=== PATIENT | male | born 1980 | race Caucasian/White ===

== ENCOUNTER 2018-05-01 00:14 | Emergency (ER) | payer OTHER ==
[~2018-05-01] VITALS: Ht 193 cm; Wt 105.3 kg
[2018-05-01 00:20] VITALS: RESP 19; Ht 193 cm; Wt 105.3 kg
--- NOTE | 2018-05-01 03:30 | ERD ---
ER Documentation Chief Complaint Chief Complaint RUQ ABD PAIN X 4HOURS,DENIES N/V/D. PT IS ANXIOUS HPI Patient is a 37-year-old HIV positive male with past medical history of meth abuse who presents to the ED with complaints of right upper quadrant pain for the past 4 hours. Patient states pain is intermittent, waxing and waning and localized to his right upper quadrant and radiates towards his epigastrium. States pain is currently 6 out of 10 intensity. Patient states he did have similar pain "once before. He does report some nausea but denies any vomiting or diarrhea. Denies any fevers, chills, constipation, bloating, dysuria, frequency, urgency, oliguria, anuria. Patient states he has been clean from any meth use for 6 months but relapsed yesterday. He is noted to have elevated blood pressure in clinic however denies any chest pain or shortness of breath. She also admits to chronic alcohol use, states he drinks "more than normal people do." Last drink a small bottle of vodka this morning. ROS All systems reviewed and are negative except as per history of present illness. Allergies Allergies: Coded Allergies: No Known Allergy (Unverified , 05/01/18) PMhx/Soc Medical and Surgical Hx: pt denies Surgical Hx Hx Miscellaneous Medical Probl: Yes (HIV (+)) Hx Alcohol Use: Yes Hx Substance Use: Yes ( HEROINE) Hx Tobacco Use: Yes Smoking Status: Current every day smoker FmHx Family History: No diabetes Physical Exam Vitals Vital Signs Date Temp Pulse Resp B/P (MAP) Pulse Ox O2 O2 Flow FiO2 Time Delivery Rate 05/01/18 97.8 76 19 172/79 100 00:20 (110) Physical Exam Const: + Appears anxious. Awake, alert and oriented x3 Head: Atraumatic Eyes: Normal Conjunctiva ENT: Normal External Ears, Nose and Mouth. Neck: Full range of motion. No meningismus. Resp: Clear to auscultation bilaterally Cardio: Regular rate and rhythm, no murmurs Abd: Soft, + mild tenderness to the epigastrium and right upper quadrant. Negative Connolly sign. Negative McBurney sign, non distended. Normal bowel sounds Skin: No petechiae or rashes Back: No midline or flank tenderness Ext: No cyanosis, or edema Neur: Awake and alert Psych: + Appears anxious Result Diagram: 05/01/1820905/01/18 0210 Results 24 hrs Laboratory Tests Test 05/01/18 02:10 White Blood Count 10.5 10^3/ul Red Blood Count 5.16 10^6/ul Hemoglobin 15.0 g/dl Hematocrit 43.7 % Mean Corpuscular Volume 84.7 fl Mean Corpuscular Hemoglobin 29.1 pg Mean Corpuscular Hemoglobin Concent 34.3 g/dl Red Cell Distribution Width 12.2 % Platelet Count 367 10^3/UL Mean Platelet Volume 9.2 fl Immature Granulocytes % 0.500 % Neutrophils % 66.6 % Lymphocytes % 23.9 % Monocytes % 8.2 % Eosinophils % 0.3 % Basophils % 0.5 % Nucleated Red Blood Cells % 0.0 /100WBC Immature Granulocytes # 0.050 10^3/ul Neutrophils # 7.0 10^3/ul Lymphocytes # 2.5 10^3/ul Monocytes # 0.9 10^3/ul Eosinophils # 0.0 10^3/ul Basophils # 0.1 10^3/ul Nucleated Red Blood Cells # 0.0 10^3/ul Prothrombin Time 12.9 Sec Prothrombin Time Ratio 1.0 INR International Normalized Ratio 0.96 Activated Partial Thromboplast Time 25.8 Sec Urine Color YELLOW Urine Clarity SLIGHTLY CLOUDY Urine pH 5.0 Urine Specific [place] 1.023 Urine Ketones 1+ mg/dL Urine Nitrite NEGATIVE mg/dL Urine Bilirubin NEGATIVE mg/dL Urine Urobilinogen NEGATIVE mg/dL Urine Leukocyte Esterase NEGATIVE [place]/ul Urine Microscopic RBC 1 /HPF Urine Microscopic WBC 6 /HPF Urine Bacteria FEW /HPF Urine Mucus FEW /HPF Urine Hemoglobin NEGATIVE mg/dL Urine Glucose NEGATIVE mg/dL Urine Total Protein NEGATIVE mg/dl Sodium Level 136 mmol/L Potassium Level 4.2 mmol/L Chloride Level 96 mmol/L Carbon Dioxide Level 26 mmol/L Anion Gap 14 Blood Urea Nitrogen 20 mg/dl Creatinine 1.44 mg/dl Est Glomerular Filtrat Rate mL/min 55 mL/min Glucose Level 79 mg/dl Calcium Level 9.9 mg/dl Total Bilirubin 0.9 mg/dl Direct Bilirubin 0.00 mg/dl Indirect Bilirubin 0.9 mg/dl Aspartate Amino Transf (AST/SGOT) 34 IU/L Alanine Aminotransferase (ALT/SGPT) 28 IU/L Alkaline Phosphatase 66 IU/L Troponin I < 0.012 ng/ml Total Protein 8.1 g/dl Albumin 4.9 g/dl Globulin 3.20 g/dl Albumin/Globulin Ratio 1.53 Lipase 93 U/L Urine Opiates Screen Negative Urine Barbiturates Negative Urine Amphetamines Screen POSITIVE Urine Benzodiazepines Screen Negative Urine Cocaine Screen Negative Urine Cannabinoids Negative Procedures/MDM EMERGENT LABS AND DIAGNOSTIC STUDIES: Lab Results above were reviewed and interpreted by me as below. CBC: no e/o of systemic infection or severe anemia CMP: Cr 1.44 No e/o severe acidosis, alkalosis, diabetic ketoacidosis, liver disease Urine: no e/o acute infection or hematuria UTox: + methamphetamine Amylase: normal, e/o pancreatitis My troponin <1 12-lead EKG interpretation Normal Sinus Rhythm with ventricular rate of 97 beats per minute Normal axis Normal intervals No acute ST or T wave changes suggestive of acute ischemia or STEMI. Radiology Results as interpreted by Radiology: PROCEDURE: XR Chest. CLINICAL INDICATION: Pain. TECHNIQUE: Single frontal view of the chest. COMPARISON: None. FINDINGS: The cardiomediastinal silhouette is within normal limits. The lungs are clear. No signs of pleural fluid or pneumothorax are seen. The osseous structures and soft tissues are unremarkable. IMPRESSION: No evidence for active cardiopulmonary disease. RPTAT: [facility] Physician Jo Ann Date Time Electronically viewed and signed by Physician Jo Ann on 05/01/2018 02:52 RS/ CC: BIBI SUH PA-C [id number] PROCEDURE: US gallbladder . CLINICAL INDICATION: Abdominal pain. TECHNIQUE: Multiple real-time images were acquired of the patient's abdomen utilizing a high resolution transducer. COMPARISON: None. FINDINGS: There is sludge within the gallbladder. There is no pericholecystic fluid or gallbladder wall thickening. The gallbladder wall measures 1-2 mm in thickness. The common bile duct measures 4-5 mm in maximal dimension. No free fluid is identified. Fatty infiltration liver with likely 21 x 14 mm hemangioma in the right hepatic lobe. The right kidney measures up to about 107 mm in length, without evident hydronephrosis or mass. The pancreas is obscured by bowel gas. IMPRESSION: Gallbladder sludge, without evident pericholecystic fluid or gallbladder wall thickening. RPTAT: [facility] Physician Jo Ann Date Time Electronically viewed and signed by Physician Jo Ann on 05/01/2018 02:58 RS/ CC: BIBI SUH PA-C [id number] Nursing Notes Reviewed. Previous Medical Records requested via the Electronic Health Record. EMERGENCY DEPARTMENT COURSE / MEDICAL DECISION MAKING: Patient is a 37-year-old male with history of HIV, meth, and alcohol use who presents to the ED with complaints of mid epigastric and right upper quadrant pain intermittently for the past 6 hours. She has no signs of a surgical abdomen on physical exam. CBC does not show any signs of infection or anemia, CMP did show a creatinine of 1.4 and GFR of 55 which is new to the patient. U tox positive for methamphetamine use which patient admitted to last using yesterday. I discussed this with him and I recommended that he stop his methamphetamine use which is likely contributing to his kidney disease. Remaining CMP is unremarkable. Ultrasound of the gallbladder is unremarkable. Given his symptoms of epigastric pain along with his history of methamphetamine abuse, EKG, troponin and chest x-ray were also obtained and all normal. At this time, patient can be managed as an outpatient. I strongly encouraged he increase his fluid intake and avoid further nephrotoxic agents such as meth, alcohol, NSAIDs. He was told to follow-up with his primary care physician in 2 days for repeat labs and possible renal ultrasound. At this time, patient shows no signs of acute renal failure require inpatient management. He has no signs of pancreatitis, cholecystitis, choledocholithiasis, cholangitis, ACS, or any other emergent process. Follow-up with his primary care as discussed. Return to the ED for any new or worsening symptoms. DISPOSITION PLAN: We discussed follow up with the patient's primary care doctor within 24 to 48 hours. Patient counseled regarding my diagnostic impression and care plan. Prior to discharge all questions answered. Pt agrees with treatment plan and understands strict return precautions. Precautionary instructions provided including instructions to return to the ER if not improving or for any worsening or changing symptoms or concerns. ExitCare instructions provided. Prior to discharge, patients vital signs have been reviewed SPECIALIST FOLLOW UP RECOMMENDED: None Patient has been advised to follow up with primary care in 1-2 days. Blood Pressure Assessment: Patient's blood pressure was elevated (>120/80) but appears stable without evidence of hypertension emergency or urgency. The patient was counseled about the risks of hypertension and urged to pursue outpatient monitoring and therapy within a week with their primary care fátima Madrigal Diagnosis: Primary Impression: Methamphetamine abuse Additional Impressions: Abdominal pain Acute kidney injury Condition: Stable Patient Instructions: Kidney Disease: Reducing Potassium in Foods, Understanding Methamphetamine Abuse and Addiction Additional Instructions: I strongly suggest avoiding methamphetamines which are further damaging her kidneys. I recommend decreasing alcohol intake as well as other nephrotoxic agents such as Aleve, Motrin, Advil. To increase your fluid intake at home. He has been given a copy of your lab results to follow-up with a primary care physician in 2 days with repeat labs. Return to the ED for any new or worsening symptoms. BIBI SUH PA-C May 01, 2018 03:29
[2018-05-01 03:50] VITALS: BP 120/64; PULSE 99
== END 2018-05-01 03:55 | disposition home or self-care (01) ==
LOC: FTE 00:14
DX: F15.10 Other stimulant abuse, uncomplicated (principal); N17.9 Acute kidney failure, unspecified; F17.210 Nicotine dependence, cigarettes, uncomplicated; Z21 Asymptomatic human immunodeficiency virus [HIV] infection status
CPT/HCPCS: 36415; 71045; 76705; 80053; 80307; 81001; 83690; 84484; 85025; 85610; 85730; 93005; Z7502; 81003